=== PATIENT | female | born 1965 | race Asian ===

== ENCOUNTER 2018-09-27 09:05 | Inpatient (IN) | payer MEDICAID ==
[2018-08-22 10:14] LABS: APPEARANCE,URINE CLEAR; BASOPHILS % (AUTO) 0.9 % (0.0-2.0); BILIRUBIN, URINE NEGATIVE (NEGATIVE); COLOR,URINE PALE YELLOW; EOSINOPHILS % (AUTO) 2.8 % (0.0-3.0); GLUCOSE, URINE (UA) NEGATIVE (NEGATIVE); HEMATOCRIT 42.6 % (37.0-47.0); HEMOGLOBIN 14.5 G/DL (12.0-16.0); KETONES,URINE NEGATIVE (NEGATIVE); LEUKOCYTE ESTERASE ,URINE NEGATIVE (NEGATIVE); LYMPHOCYTES % (AUTO) 38.4 % (20.0-45.0); MEAN CORPUSCULAR VOLUME 91 FL (80-99); MONOCYTES % (AUTO) 5.5 % (1.0-10.0); NEUTROPHILS % (AUTO) 52.4 % (45.0-75.0); NITRITE,URINE NEGATIVE (NEGATIVE); PH,URINE 6.5 (4.5-8.0); PLATELET COUNT 278 K/UL (150-450); PROTEIN,URINE NEGATIVE (NEGATIVE); RED BLOOD COUNT 4.71 M/UL (4.20-5.40); RED CELL DISTRIBUTION WIDTH 11.9 % (11.6-14.8); UROBILINOGEN,URINE NORMAL MG/DL (0.0-1.0)
[2018-08-22 10:28] LABS: ANION GAP 11 mmol/L (5-15); BLOOD UREA NITROGEN 12 mg/dL (7-18); CALCIUM 9.4 MG/DL (8.5-10.1); CARBON DIOXIDE 27 MMOL/L (21-32); CHLORIDE 103 MMOL/L (98-107); CREATININE 0.6 MG/DL (0.55-1.30); POTASSIUM 4.3 MMOL/L (3.5-5.1); SODIUM 141 MMOL/L (136-145)
--- NOTE | 2018-09-22 16:15 | Pre-op HX & Phy Repo 2 SIG ---
DATE OF ADMISSION: 09/27/2018 SCHEDULED FOR SURGERY: September 27, 2018. HISTORY OF PRESENT ILLNESS: The patient is a 53-year-old female in overall stable health with invasive ductal carcinoma and ductal carcinoma in situ of the left breast. The patient presented for screening imaging and in the left breast, lower outer quadrant 4 o'clock, 5 cm from the nipple was a 3 x 3 centimeter area of microcalcifications and trabecular thickening. Core biopsies revealed invasive poorly differentiated ductal carcinoma and ductal carcinoma in situ. The patient is estrogen and progesterone receptor positive and her 2-. She was seen by Medical Oncology, who recommended proceeding with surgery with additional therapy to be determined based on final pathology. She is scheduled to undergo left breast partial mastectomy with preoperative needle localization and left axillary lymph node biopsy. A PET-CT scan was negative except for the left breast. PAST MEDICAL HISTORY/MEDICATIONS: Amlodipine 5 mg for hypertension. ALLERGIES: None. OPERATIONS: D and C, cholecystectomy, both years ago. She is 1, para 0. PHYSICAL EXAMINATION: GENERAL: The patient is 4 foot and 11 inches, 175 pounds. HEENT: Within normal limits. LUNGS: Clear. HEART: Regular rhythm. BREASTS: Medium in size. There was no palpable mass in either breast. 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 There is no axillary or supraclavicular lymphadenopathy. ABDOMEN: Soft. PELVIC AND RECTAL: Per primary care. EXTREMITIES: Without edema. NEUROLOGIC: Physiologic. IMPRESSION: Invasive poorly differentiated ductal carcinoma and ductal carcinoma in situ left breast PLAN: Left breast partial mastectomy with preop needle localization and left axillary lymph node biopsy. A full discussion has been had with the patient regarding the nature of her condition, the nature of the surgery, indications, alternatives, options and risks including bleeding, infection, need for additional surgery based on final pathology, need for additional therapy including radiation and possible chemotherapy, scarring, distortion of the breast, etc. All questions have been answered. She understands and agrees to proceed. Manjeet Rodríguez M.D. DR: Isadora JOB#: [id number] CC: FOREST
[~2018-09-27] VITALS: Ht 149.9 cm; Wt 78.9 kg
[2018-09-27] VITALS (12 sets, daily range): BP systolic 122–153; BP diastolic 71–95
[2018-09-27] MEDS ORDERED: VITAMIN D31000 UNI4 PO (10:11)
[2018-09-27] MEDS ORDERED: GRAVIOLA PO (10:11)
[2018-09-27] MEDS ORDERED: AMLODIPINE BESYL5 MG ORAL (10:11)
[2018-09-27] MEDS ORDERED: VITAMIN C500 M1 ORAL (10:11)
[2018-09-27] MEDS ORDERED: Sodium Chloride 10ml vial INJ ONE (10:12)
[2018-09-27] MEDS ORDERED: Dexamethasone 4mg/ml vial ONE (10:12)
[2018-09-27] MEDS ORDERED: Lidocaine 1% MPF 10mg/ml 5ml ONE ×2 (10:12→12:43)
[2018-09-27] MEDS ORDERED: fentaNYL 100 mcg/2 mL IV ONE (10:18)
[2018-09-27] MEDS ORDERED: LR 1000ml 1,000 ML IVLG SCH (10:22)
[2018-09-27] MEDS ORDERED: LORazepam Inj 2mg/ml 1ml IV PRN (10:30)
[2018-09-27] MEDS ORDERED: DiphenhydrAMINE 50mg/ml Inj IVP PRN (10:30)
[2018-09-27] MEDS ORDERED: Midazolam 2mg/2ml Inj IVP PRN (10:30)
[2018-09-27] MEDS ORDERED: Ketorolac 30mg Inj IV PRN ×2 (10:30)
[2018-09-27] MEDS ORDERED: Norco 5mg/325mg tab ORAL PRN (10:30)
[2018-09-27] MEDS ORDERED: oxyCODONE HCL/Acetaminophen 5/325mg ORAL PRN (10:30)
[2018-09-27] MEDS ORDERED: HYDROcodone/Acetamin 7.5/325 tab ORAL PRN (10:30)
[2018-09-27] MEDS ORDERED: Metoclopramide 10mg/2ml Inj IVP PRN (10:30)
[2018-09-27] MEDS ORDERED: Meperidine 50mg/ml Inj(FOR RIGORS ONLY) IVP PRN (10:30)
[2018-09-27] MEDS ORDERED: Hydromorphone 0.5mg/0.5ml inj IVP PRN (10:30)
[2018-09-27] MEDS ORDERED: fentaNYL 100 mcg/2 mL IV PRN (10:30)
[2018-09-27] MEDS ORDERED: Atropine Sulfate 0.4mg/ml inj IVP PRN (10:30)
[2018-09-27] MEDS ORDERED: Acetaminophen (Non formulary) 100 ML IV ONE (10:30)
--- NOTE | 2018-09-27 10:30 | Anethesia Preoperative Eval ---
Anesthesia Pre-op PMH/ROS General Date of Evaluation: Sep 27, 2018 Time of Evaluation: 11:54 Anesthesiologist: Lenny ASA Score: ASA 3 Mallampati Score Class I : Soft palate, uvula, fauces, pillars visible Class II: Soft palate, uvula, fauces visible Class III: Soft palate, base of uvula visible Class IV: Only hard plate visible Mallampati Classification: Class II Surgeon: Marcos Diagnosis: Invasive Ductal Carcinoma, left breast. Surgical Procedure: Partial Mastectomy with Left Axillary node Dissection Anesthesia History: none Family History: no anesthesia problems Allergies: Coded Allergies: No Known Allergies (Unverified , 09/27/18) Medications: see eMAR Patient NPO?: Yes Past Medical History Cardiovascular: Reports: HTN Hematology/Immune: Reports: other - Breast CA Other: obesity PSxH Narrative: D&C, Cholecystectomy Anesthesia Pre-op Phys. Exam Physician Exam Last Vital Signs Date Time Temp Pulse Resp B/P (MAP) Pulse Ox O2 Delivery O2 Flow Rate FiO2 09/27/18 10:20 97.0 74 20 142/73 97 Room Air Constitutional: NAD Neurologic: CN 2-12 intact Cardiovascular: RRR Respiratory: CTA Gastrointestinal: S/NT/ND Airway Exam Mallampati Score: Class II MO: full ROM: full Teeth: missing, intact Anesthesia Pre-op A/P Risk Assessment & Plan Assessment: ASA 3 Plan: GA, SED Status Change Before Surgery: No Pre-Antibiotics Dru Gram Ancef IV Given Within 1 Hr of Incision: Yes Time Given: 12:06 Ivan Galvez MD Sep 27, 2018 10:30
--- NOTE | 2018-09-27 10:31 | Immediate Post-Op Evaluation ---
Immediate Post-Op Evalulation Immediate Post-Op Evalulation Procedure: Partial Mastectomy with Left Axillary node Dissection Date of Evaluation: Sep 27, 2018 Time of Evaluation: 14:10 IV Fluids: 800 Blood Products: 0 Estimated Blood Loss: 25 Urinary Output: 0 Blood Pressure Systolic: 120 Blood Pressure Diastolic: 72 Pulse Rate: 76 Respiratory Rate: 16 O2 Sat by Pulse Oximetry: 100 Temperature (Fahrenheit): 97 Pain Score (1-10): 2 Nausea: No Vomiting: No Complications 0 Patient Status: awake, reacts, patent, none Hydration Status: adequate Dru Gram Ancef IV Given Within 1 Hr of Incision: Yes Time Given: 12:06 Ivan Galvez MD Sep 27, 2018 10:31
--- NOTE | 2018-09-27 10:33 | NUR ---
SPOKE WITH DR AREVALO,ANESTHESIOLOGIST, REGARDING LABS DONE 08/22/2018. NO NEED TO REPEAT ACCORDING TO DR AREVALO.
--- NOTE | 2018-09-27 11:10 | Pre-Procedure Note/Attestation ---
Pre-Procedure Note/Attestation Complete Prior to Procedure Planned Procedure: left Procedure Narrative: left breast partial mastectomy with pre-op needle localization and left axillary lymph node biopsy Indications for Procedure Pre-Operative Diagnosis: invasive ductal carcinoma and ductal carcinoma in situ left breast Attestation I attest that I discussed the nature of the procedure; its benefits; risks and complications; and alternatives (and the risks and benefits of such alternatives ), prior to the procedure, with the patient (or the patient's legal associate financial representative). I attest that, if there was a reasonable possibility of needing a blood transfusion, the patient (or the patient's legal associate financial representative) was given the [facility] standardized written summary, pursuant to the [place] Blood Safety Act ([place] Health and Safety Code # 1645, as amended). I attest that I re-evaluated the patient just prior to the surgery and that there has been no change in the patient's H&P, except as documented below: none Manjeet Rodríguez MD Sep 27, 2018 11:10
[2018-09-27] MEDS ORDERED: Lidocaine 1% 10mg/ml/Epi 0.005mg/ml 30ml vial INJ ONE (11:51)
[2018-09-27] MEDS ORDERED: Bacitracin 50000 Units Vial ONE (11:51)
[2018-09-27] MEDS ORDERED: Bupivacaine w/Epi 0.5% 30ml Vial INJ ONE (11:51)
[2018-09-27] MEDS ORDERED: NeoSporin Gu Irrig 1ml Amp IRRIG ONE (11:52)
[2018-09-27] MEDS ORDERED: LR 1000ml ONE (12:00)
[2018-09-27] MEDS ORDERED: Propofol 200mg/20ml IV ONE (12:00)
[2018-09-27] MEDS ORDERED: NS Irrig 1000ml ONE (12:00)
[2018-09-27] MEDS ORDERED: Sterile Water Irrig 1000ml IRRIG ONE (12:00)
[2018-09-27] MEDS ORDERED: Ketamine 500mg Inj ONE (12:40)
--- NOTE | 2018-09-27 13:51 | Brief Operative Note ---
Immediate Post Operative Note Operative Note Pre-op Diagnosis: invasive ductal carcinoma and ductal carcinoma in situ left breast Procedure: left breast partial mastectomy with pre-op needle localization and left axillary lymph node biopsy Post-op Diagnosis: same Post-op Diagnosis: same as pre-op Findings: consistent w/pre-op dx studies Surgeon: pat Anesthesiologist: sana Anesthesia: general Specimen: yes - left breast tissue, left axillary nodes Complications: none Condition: stable Fluids: see anesthesia record Estimated Blood Loss: minimal Drains: ABDIEL Implant(s) used?: No Manjeet Rodríguez MD Sep 27, 2018 13:51
[2018-09-27] MEDS ORDERED: HYDROmorphone 1mg/ml Carpuject SUBQ PRN (14:00)
--- NOTE | 2018-09-27 15:20 | NUR ---
NURSE NOTES: Received report from Yvonne YOKE SETTER. Patient a/o x4 lying on the bed. No respiratory distress noted. Denies any pain at this time. O2 2L on at this time. Surgical left breast dressing is dry and intact. ABDIEL drainage catheter in placed and no drainage noted. Bed in lowest position, call light within reach. Will continue to monitor.
[2018-09-27] MEDS: D5 1/2NS w/KCl 20mEq 1,000 ML IV SCH (18:08)
--- NOTE | 2018-09-27 19:45 | NUR ---
NURSE NOTES: Pt lying in bed w/bed in lowest position and call light within reach. Pt A&Ox4, VSS, and in no apparent distress. IV site intact/asymptomatic w/IVF @ 100 ml/hr; surgical dressing/bra C/D/I; and ABDIEL drain to bulb suction. Will continue to monitor.
--- NOTE | 2018-09-27 19:54 | NUR ---
HAND-OFF: Report given to GIL Lr.
--- NOTE | 2018-09-27 20:15 | Operative Note - Dictated ---
DATE OF OPERATION: 09/27/2018 SURGEON: Manjeet Rodríguez M.D. [employer] OFFICER: None. ANESTHESIOLOGIST: Ivan Galvez M.D. TYPE OF ANESTHESIA: General. PREOPERATIVE DIAGNOSES: Invasive ductal carcinoma and ductal carcinoma in situ, left breast. POSTOPERATIVE DIAGNOSES: Invasive ductal carcinoma and ductal carcinoma in situ, left breast. OPERATION PERFORMED: Left breast partial mastectomy with preoperative needle localization and left axillary lymph node biopsy. DESCRIPTION OF PROCEDURE: The patient was taken to the operating room and under general anesthesia with sequential compression device stockings in place, she was prepped and draped in usual fashion incorporating the left upper extremity into the sterile field with an impervious stockinette. The patient had a 3 x 3 cm area of microcalcifications with trabecular thickening in the lower outer quadrant of the left breast. A curvilinear incision was made achieving hemostasis with cautery and flaps dissected circumferentially. The wire was brought into the field. The incision was deepened to the chest wall and the entire quadrant was resected with suture markers orienting anterior, medial, and superior. Specimen radiography was performed and the radiologist reported the entire area of microcalcifications was present in the specimen. The specimen was given to pathology who felt it was close to the posterior medial margin and additional tissue resected in that zone. Hemostasis achieved with cautery. Irrigation performed and hemostasis was secured. Incision was closed with interrupted 3-0 Vicryl subcutaneous deep dermal sutures followed by continuous 4-0 Monocryl subcuticular suture. Left axillary incision was made at the hairline achieving hemostasis with cautery and incising the clavipectoral fascia. Lower level dissection was performed using the Thunderbeat electrosurgical device. Through a separate stab wound infero-laterally, a 19 mm round Regino drain was placed into the axilla and sutured to the skin with a 2-0 nylon suture. The clavipectoral fascia was closed with interrupted 2-0 Vicryl after ascertaining the hemostasis was secured and the incision closed with 3-0 Vicryl and 4-0 Monocryl. Mastisol and half-inch Steri-Strips were applied to both incisions followed by dry sterile dressings. Final sponge and needle counts were correct. The patient tolerated the procedure well, left the operating room in good condition. Manjeet Rodríguez M.D. DR: KAMERON JOB#: [id number] CC: FOREST
--- NOTE | 2018-09-27 21:30 | NUR ---
NURSE NOTES: Pt still sleeping and would not like to ambulate at this time saying she would like to sleep tonight and ambulate in the AM. Will endorse to morning shift RN.
[2018-09-28] MEDS: Norco 5mg/325mg tab ORAL PRN ×2 (00:05→09:01)
[2018-09-28 00:13] VITALS: BP 147/83
[2018-09-28 04:00] VITALS: BP 131/75
[2018-09-28] MEDS: D5 1/2NS w/KCl 20mEq 1,000 ML IV SCH (04:01)
--- NOTE | 2018-09-28 04:15 | NUR ---
NURSE NOTES: Helped pt to bathroom to void without incident. Will continue to monitor.
--- NOTE | 2018-09-28 07:11 | 48 Hour Post Anesthesia Eval ---
Post Anesthesia Evaluation Procedure: Partial Mastectomy with Left Axillary node Dissection Date of Evaluation: Sep 28, 2018 Time of Evaluation: 06:37 Blood Pressure Systolic: 131 0: 75 Pulse Rate: 78 Respiratory Rate: 19 Temperature (Fahrenheit): 97.5 O2 Sat by Pulse Oximetry: 96 Airway: patent Nausea: No Vomiting: No Pain Intensity: 2 Hydration Status: adequate Cardiopulmonary Status: Stable Mental Status/LOC: patient returned to baseline Follow-up Care/Observations: 0 Post-Anesthesia Complications: 0 Follow-up care needed: N/A Ivan Galvez MD Sep 28, 2018 07:11
--- NOTE | 2018-09-28 07:44 | NUR ---
HAND-OFF: Report given to GIL Adam.
[2018-09-28 08:00] VITALS: BP 139/91
--- NOTE | 2018-09-28 08:16 | NUR ---
NURSE NOTES: Pt in bed a/o x 4 in no acute distress, pt denies pain. Left breast dressing D/C/I. ABDIEL tube patent, draining serosanguineous drainage. Removed 10 ml of drainage, sealed tight. Discussed with pt plan of care, along with pain management and ambulation. Will continue to monitor.
--- NOTE | 2018-09-28 11:00 | NUR ---
Pt has minimal left breast discomfort. Ambulated the pt in the unit, pt c/o dizziness on ambulation. Stand by assist at all times, pt assisted to bathroom x 2. Will continue to monitor and encourage use of IS.
[2018-09-28 12:00] VITALS: BP 130/72
--- NOTE | 2018-09-28 12:37 | NUR ---
CASE MANAGEMENT:REVIEW 53 YR OLD FEMALE SI: LEFT BREAST CARCINOMA 97.5 85 18 139/91 96% ON RA IS: TO SURGERY FOR PARTIAL MASTECTOMY : TO MED/SURG POST OP 09/28/18 SI: POD #1 S/P PARTIAL MASTECTOMY 97.8 85 18 139/91 96% ON RA IS: IVF @ 100/HR NORVASC PO QD NORCO PO Q4HRS PRN : MED/SURG STATUS 3 EAST
--- NOTE | 2018-09-28 13:05 | General Progress Note ---
Progress Note Progress Note AVSS c/o intermittent nausea and dizziness. Able to ambulate with assistance Left breast and axillary incisions clean with intact steristrips ABDIEL drain 42cc serosang Imp. Nausea and dizziness ? medication reaction Plan; Maintain in hospital d/c [place] - try Tramadol teach patient care of ABDIEL drain Manjeet Rodríguez MD Sep 28, 2018 13:05
[2018-09-28 16:00] VITALS: BP 130/81
--- NOTE | 2018-09-28 18:08 | NUR ---
Pt educated on how to take care of PRABHAKAR tube, how to empty, record, and seal tight. Pt allowed to return demonstration. Pt was able to open prabhakar tube, empty, and compress bulb tight. Pt left with recording log sheet and measuring cup for home use. Pt ambulated around room, stood up, denies dizziness. Pt left in bed in low position, call light within reach, skid socks on.
--- NOTE | 2018-09-28 19:30 | NUR ---
NURSE NOTES: Received report from GIL Adam. Patient alert, oriented. Denies discomfort. Bed in lowest position, locked, side rails up x2, call light within reach. Heplock on RH, intact. Surgical bra on, intact and dry. ABDIEL compresssed, output serosanguinous. c/o swelling L hand, slight swelling noted, arm elevated on pillow. No distress noted, will continue to monitor.
--- NOTE | 2018-09-28 19:50 | NUR ---
HAND-OFF: Report given to GIL Elder. Pt left in bed in stable condition, a/o x 4. Call light within reach, skid socks on.
[2018-09-28 20:00] VITALS: BP 136/72
[2018-09-28] MEDS: traMADol 50mg tab ORAL PRN (21:52)
[2018-09-29] VITALS: BP 130/75
[2018-09-29 04:00] VITALS: BP 139/78
--- NOTE | 2018-09-29 07:48 | NUR ---
NURSE NOTES: Pt in chair a/o x 4 in no acute distress, pt denies pain. Left breast dressing D/C/I. ABDIEL tube patent, draining serosanguineous drainage, tight seal on bulb. Lung sounds clear, heart sounds s1s2, BS normoactive. IS at bedside, right hand IV is dry, clean and SL. Discussed with pt plan of care, along with pain management and discharge plan. Pt left in bed in low position, call light within reach, skid socks on. Will continue to monitor.
--- NOTE | 2018-09-29 07:49 | NUR ---
HAND-OFF: Report given to GIL Adam. Patient stable.
[2018-09-29 08:00] VITALS: BP 127/81
--- NOTE | 2018-09-29 08:07 | General Progress Note ---
Progress Note Progress Note AVSS Feeling much better with no nausea or vertigo Left breast and axilla incisions clean and dry ABDIEL 37cc serosang Imp. doing well Plan: discharge with ABDIEL drain instructions/limitations/supplies provided/discussed f/u office 10/04 Manjeet Rodríguez MD Sep 29, 2018 08:07
--- NOTE | 2018-09-29 08:38 | NUR ---
Per Dr. Rodríguez, pt to continue all home meds upon discharge.
[2018-09-29 09:03] VITALS: BP 127/81
[2018-09-29] MEDS: traMADol 50mg tab ORAL PRN (09:04)
--- NOTE | 2018-09-29 10:30 | NUR ---
Pt discharged in stable condition accompanied by friend. Pt left with all belongings, discharge instructions, and supplies 4x4 gauze and tape as ordered. IV to right hand dc'd, applied pressure, no bleeding noted. Left breast dressing, D/C/I, changed today by Dr. Rodríguez. Pt had opportunity to ask questions, pt had no further questions. Pt is aware she has flu appt on 10/[address] Rodríguez.
--- NOTE | 2018-09-30 12:28 | Discharge Summary ---
Discharge Summary Discharge Summary _ DATE OF ADMISSION: 09/27/2018 DATE OF DISCHARGE: 09/29/2018 DISCHARGED BY: Dr. 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 The patient presented for screening imaging and in the left breast, lower outer quadrant 4 o'clock, 5 cm from the nipple was a 3 x 3 centimeter area of microcalcifications and trabecular thickening. Core biopsies revealed invasive poorly differentiated ductal carcinoma and ductal carcinoma in situ. The patient is estrogen and progesterone receptor positive and her 2-. She was seen by Medical Oncology, who recommended proceeding with surgery with additional therapy to be determined based on final pathology. A PET-CT scan was negative except for the left breast. BRIEF HOSPITAL COURSE: She underwent left breast partial mastectomy with preoperative needle localization and left axillary lymph node biopsy on 09/27/2018. She tolerated the procedure well. She was then admitted for postop care. Following day, she had intermittent nausea and dizziness. Left breast and axillary incisions were clean with intact Steri-Strips. ABDIEL drain had 42 cc serosanguineous drainage. [place] was discontinued. She was given trial of tramadol. She was instructed on care of ABDIEL drain. Next day, she was feeling much better with no nausea or vertigo. ABDIEL drain was 37 cc. Left breast and axilla incisions were clean and dry. She was cleared for discharge home with ABDIEL drain. Instructions/limitations/supplies were provided and discussed. Patient was discharged home in stable condition. PREOPERATIVE DIAGNOSES: Invasive ductal carcinoma and ductal carcinoma in situ, left breast. POSTOPERATIVE DIAGNOSES: Invasive ductal carcinoma and ductal carcinoma in situ, left breast. OPERATION PERFORMED: Left breast partial mastectomy with preoperative needle localization and left axillary lymph node biopsy. DISPOSITION: Patient was discharged home. DISCHARGE MEDICATIONS: Refer to Discharge Medication List. DISCHARGE INSTRUCTIONS: Follow-up on 10/04/2018. I have been assigned to complete a discharge summary on this account, I was not involved with the patient's management. Lisa aMciel NP Sep 30, 2018 12:28
== END 2018-09-29 10:35 | disposition home or self-care (01) | DRG 363 ==
LOC: SUR 09:05 → 3E 13:51
PROC: 07B60ZX Excision of Left Axillary Lymphatic, Open Approach, Diagnostic (ICD-10-PCS; 2018-09-27)
PROC: 0HBU0ZZ Excision of Left Breast, Open Approach (ICD-10-PCS; principal; 2018-09-27 12:00)
DX: C50.512 Malignant neoplasm of lower-outer quadrant of left female breast (principal); I10 Essential (primary) hypertension; Z17.0 Estrogen receptor positive status [ER+]; Z90.49 Acquired absence of other specified parts of digestive tract
CPT/HCPCS: 36415; 80048; 81001; 85025; 85610; 85730; 93005; 94003; 94150; J2405